=== PATIENT | male | born 1970 | race Caucasian/White ===

== ENCOUNTER 2020-12-20 15:18 | Inpatient (IN) | payer SELFPAY ==
[2020-12-20 15:19] VITALS: BP 126/78; PULSE 68; RESP 14; TEMP 35.2; O2SAT 97; BMI 29.8
--- NOTE | 2020-12-20 16:47 | CM.ED ---
Addendum entered by Jannet Gomez 12/20/20 21:03: DORI called Patrick and spoke to Erick. Updated her about patient and his admission to [facility]. Provided her with room number. Jannet DAVILA Original Note: DORI note: Referral Source: Dulce, patient's child's mother Reason for Referral: Detox SW received call from [facility] inquiring about the [facility] ([facility]) treatment program. SW explained [facility] program to patient. Patient's child's mother, Dulce, said that patient needs detox. She indicated that patient's drug of choice is heroin. SW explained the program and stated she will be coming to bring patient into the Emergency Room. Of note, Dulce said patient has no ID or photo ID. SW met with patient. Patient was asked about desire to get detox via [facility] program. SW explained program involves patient signing a contract, no visitors and no cell phone while in detox, which is on average 3-5 days. Patient verbalized understanding. Patient voiced desire to participate in program. No questions or concerns voiced. Plan: [facility] Jannet DAVILA
--- NOTE | 2020-12-20 16:47 | EX.ED.SAOD ---
HPI History of Present Illness Chief Complaint: Substance Abuse Detail of Chief Complaint: IV opiates, daily use 1 g heroin Informant: patient Onset/Context/Timing Onset: Month(s) (Patient states he has been using for approximately 15 years.) Context: Gradual Onset Timing: Continuous Quality: 1 g of heroin Location: IV drug use Current Severity: Moderate Maximum Severity: Moderate Worsened by: Nothing Relieved by: Nothing Associated Symptoms Associated Symptoms: Positive for rash*; Negative for vomiting*, diarrhea*, fever*, seizure, tremor, palpatations, change in mental status, trauma and sex for drugs* Narrative Narrative: Patient is an IV drug user. He has been using for 15 years. Last rehab was 5 years ago. He states he last used at 0900. He denies headache, visual disturbance, ocular or auditory symptoms. He denies trouble speech or swallowing. Nuys chest pain or shortness of breath. He denies nausea, vomiting diarrhea. He denies dysuria, frequency, urgency or hematuria. He states he used recently in his arms. He denies atraumatic fever, heart murmur, SBE or being immune suppressed. Prior similar symptoms: Yes Recent Illness/Hospitalization: No PFSH PFSH no medical history Home Medications Zyprexa 05/12/16 [History Last Taken Unknown] Allergy/AdvReac Type Severity Reaction Status Date / Time No Known Allergies Allergy Verified 05/12/16 17:59 no significant family history no surgical history Social History (Updated 12/20/20 @ 16:[address] Jony Castellano MD) Smoking Status: Current every day smoker details: Rarely uses substance use type: opiates and IV drugs ROS ROS ED Constitutional Constitutional ED: Denies chills, fever(s), subjective or sweats Eyes Eyes: Denies blurry vision, change in vision or diplopia ENT ENT ED: Denies ear pain, rhinorrhea or sore throat Cardiovascular Cardiovascular: Denies chest pain or palpitations Respiratory/Chest Respiratory/Chest: Denies cough, dyspnea or dyspnea on exertion Gastrointestinal Gastrointestinal: Denies abdominal pain, diarrhea, nausea or vomiting Genitourinary Genitourinary ED: Denies dysuria or urinary frequency Musculoskeletal Musculoskeletal: Denies arthralgias, myalgias or neck pain Integumentary Reports rash; Denies abscess Neurologic Neurologic: Reports weakness; Denies headache(s) or paresthesias Psychiatric Psychiatric: Reports depression; Denies suicidal ideation or suicidal thoughts Hematologic/Lymphatic Hematologic/Lymphatic: Denies easy bleeding or easy bruising EXAM Physical Exam Const Vital Signs: 12/20/20 15:19 12/20/20 19:17 Temperature 95.3 F L Temperature Source Temporal Pulse Rate 68 Respiratory Rate 14 16 Blood Pressure 126/78 H Blood Pressure Mean 94 Pulse Ox 97 Oxygen Delivery Method Room Air Positive well nourished, well developed and unkempt General Appearance ED: unkempt and well developed; Negative for pallor HEENT Reports TM's clear and dry mucous membranes atraumatic Tympanic Membrane ED: Yes TM's clear Mouth ED: Yes dry mucous membranes Mouth: dry mucous membranes Eyes PERRL and EOMs intact bilaterally General Eye ED: Negative for pale conjunctiva or scleral icterus Neck no lymphadenopathy, supple and no JVD Thyroid: tender Lymph Lymphatic: no lymphadenopathy noted and lymphadenopathy Chest Wall palpation of chest normal Resp normal respiratory effort and clear to auscultation bilaterally Cardio regular rate, regular rhythm, S1 normal heart sound, S2 normal heart sound and no murmurs GI soft to palpation, non-tender, non-distended and no masses Back/Spine no CVA tenderness Cervical Spine: Negative for cervical spine tenderness Thoracic Spine / Upper Back: Negative for thoracic spinal tenderness Lumbar Spine / Lower Back: Negative for lumbar spinal tenderness Extremity Extremity Narrative: There is tenderness noted over areas of erythema medial anterior distal right and left leg/ankle General Extremety ED: Yes tenderness and other findings; Negative for edema General Extremity: other findings; Negative for edema Neuro oriented x3, CN's II-XII intact bilaterally and no sensory deficits noted Motor Exam: strength 5/5 throughout Psych thought process normal Appearance: unkempt Mood & Affect: depressed Skin Skin Narrative: Rash as previously described. No evidence of abscess. General Skin Exam: Negative for jaundice or pallor Lesions: no lesions MDM MDM MDM Narrative Medical decision making narrative: Patient with depressed affect. He has multiple injection sites noted. There are concern for infection. Blood work was obtained. Lactate was obtained. If he has evidence of endorgan injury or severe sepsis will obtain blood cultures prior to administration of IV antibiotics. Otherwise will treat with p.o. antibiotics and call hospitalist for admission. Lab Data Attestation: I reviewed the patient's lab results. Lab results narrative: CBC is normal. CO2 and anion gap are normal. Talk screen is positive for amphetamines. Alcohol level is minimal. Will page hospitalist for admission for opiate addiction and cellulitis injection sites Labs: Laboratory Results - last 24 hr 12/20/20 12/20/20 12/20/20 18:40 19:00 19:00 WBC 7.4 RBC 4.59 L Hgb 13.3 Hct 41.8 MCV 91.1 MCH 29.0 MCHC 31.8 L RDW Std Deviation 49.3 H RDW Coeff of Nayana 14.8 H Plt Count 223 MPV 9.4 Immature Gran % (Auto) 0.100 Neut % (Auto) 44.2 L Lymph % (Auto) 36.4 [place] % (Auto) 13.2 H Eos % (Auto) 5.3 H Baso % (Auto) 0.8 Absolute Neuts (auto) 3.3 Absolute Lymphs (auto) 2.68 Nucleated RBC % 0 Sodium 138 Potassium 3.7 Chloride 106 Carbon Dioxide 31.0 Anion Gap 1 L BUN 11 Creatinine 0.97 Estim Creat Clear Calc 91.11 Est GFR (MDRD) Af Amer 105 Est GFR (MDRD) Non-Af 87 BUN/Creatinine Ratio 11.4 Glucose 75 Calcium 8.5 Total Bilirubin 0.20 AST 66 H ALT 86 H Alkaline Phosphatase 127 H Total Protein 7.7 Albumin 3.1 L Globulin 4.6 H Albumin/Globulin Ratio 0.7 L Urine Opiates Screen NEGATIVE Urine Methadone Screen NEGATIVE Ur Barbiturates Screen NEGATIVE Ur Phencyclidine Scrn NEGATIVE Ur Amphetamines Screen POSITIVE H U Methamphetamin-MDMA NEGATIVE U Benzodiazepines Scrn NEGATIVE Urine Cocaine Screen NEGATIVE U Cannabinoids Screen NEGATIVE Ur Drug Screen Comment Ethyl Alcohol 12/20/20 19:00 WBC RBC Hgb Hct MCV MCH MCHC RDW Std Deviation RDW Coeff of Nayana Plt Count MPV Immature Gran % (Auto) Neut % (Auto) Lymph % (Auto) [place] % (Auto) Eos % (Auto) Baso % (Auto) Absolute Neuts (auto) Absolute Lymphs (auto) Nucleated RBC % Sodium Potassium Chloride Carbon Dioxide Anion Gap BUN Creatinine Estim Creat Clear Calc Est GFR (MDRD) Af Amer Est GFR (MDRD) Non-Af BUN/Creatinine Ratio Glucose Calcium Total Bilirubin AST ALT Alkaline Phosphatase Total Protein Albumin Globulin Albumin/Globulin Ratio Urine Opiates Screen Urine Methadone Screen Ur Barbiturates Screen Ur Phencyclidine Scrn Ur Amphetamines Screen U Methamphetamin-MDMA U Benzodiazepines Scrn Urine Cocaine Screen U Cannabinoids Screen Ur Drug Screen Comment Ethyl Alcohol 6.0 Discharge Plan Triage Chief Complaint: Substance Abuse ED Provider: Jony Castellano Dx/Rx/DC Orders Clinical Impression: Opiate dependence, continuous, Cellulitis of left ankle, Cellulitis of right ankle Prescriptions: No Action Zyprexa RF: 0 Primary Care Provider: Care Physician,No Primary Referrals: Care Physician,No Primary [Primary Care Provider] - Disposition Disposition: Acute Care Hospital [facility]
[2020-12-20 19:01] LABS: Amphetamine Urine VISTA POSITIVE (<1000 ng/mL); Barbiturate Urine VISTA NEGATIVE (< 200 ng/mL); Benzodiazepine Urine VISTA NEGATIVE (< 200 ng/mL); Cocaine Urine VISTA NEGATIVE (< 300 ng/mL); Ecstacy Urine VISTA NEGATIVE (< 500 ng/mL); Methadone Urine VISTA NEGATIVE (< 300 ng/mL); PCP Urine VISTA NEGATIVE (< 25 ng/mL); THC Urine VISTA NEGATIVE (< 50 ng/mL); Vista UDS pH Range 6
[2020-12-20 19:09] LABS: Absolute Lymphocyte Count 2.68 X10^3/uL (0.83-4.51); Absolute Neutrophil Count 3.3 X10^3/uL (2.0-7.7); Basophil# 0.06 X10^3/uL; Basophil% 0.8 % (0-1); Eosinophil# 0.39 X10^3/uL; Eosinophils% 5.3 % (0-5); Hematocrit 41.8 % (40-54); Hemoglobin 13.3 g/dL (13.0-16.5); Lymphocyte # 2.68 X10^3/ul (0.83-4.51); Lymphocyte % 36.4 % (19-41); Mean Corp Hgb Conc 31.8 g/dL (32-36); Mean Corpuscular Volume 91.1 fL (80-94); Mean Platelet Vol. 9.4 fl (6.2-12.0); Monocyte# 0.97 X10^3/uL; Monocyte% 13.2 % (0-10); NRBC Flagged by Analyzer 0 % (0-5); Neutrophil # 3.25 X10^3/uL (2.7-7.7); Neutrophil % 44.2 % (47-70); Platelet Count 223 K/mm3 (150-450); RBC Distribution Width CV 14.8 % (11.6-14.6); RBC Distribution Width SD 49.3 fl (35.1-43.9); Red Blood Count 4.59 M/mm3 (4.6-6.2); White Blood Count 7.4 K/mm3 (4.4-11.0)
[2020-12-20 19:17] VITALS: RESP 16
[2020-12-20 19:26] LABS: ALB/GLOB Ratio 0.7 RATIO (0.9-2.4); AST(SGOT) 66 U/L (15-37); Alanine Aminotransfer ALT/SGPT 86 U/L (16-61); Albumin, Serum 3.1 g/dL (3.2-5.0); Alkaline Phosphatase 127 U/L (45-117); Anion Gap 1 (5-15); BUN 11 mg/dL (7-18); BUN/Creat Ratio 11.4 RATIO (10-20); Calcium,Total 8.5 mg/dL (8.5-10.1); Chloride 106 mmol/L (98-107); Creatinine, Serum 0.97 mg/dL (0.70-1.30); EST Glomerular Filtration Rate 87 mL/min (>60); Est Glom Filt Rate - Afr Amer 105 mL/min (>60); Estimated Creatinine Clearance 91.11 ml/min; Globulin 4.6 g/dL (2.2-4.2); Glucose 75 mg/dL (74-106); Potassium 3.7 mmol/L (3.5-5.1); Protein, Total 7.7 g/dL (6.4-8.2); Sodium Level 138 mmol/L (136-145)
[2020-12-20 20:32] VITALS: BP 124/74; PULSE 69; RESP 16; TEMP 36.6; O2SAT 97
[2020-12-20 20:32] LABS: Lactic Acid 1.1 mmol/L (0.4-1.9)
[2020-12-20] MEDS: Doxycycline 100 MG CAPSULE PO (20:36)
[2020-12-20 20:55] VITALS: BMI 29.0
--- NOTE | 2020-12-20 21:04 | PCM.HP.STD ---
HPI - General General Date of Admission: 12/20/20 Chief Complaint: Desire for detoxification HPI Narrative ALMA KINGSLEY, is a 50 M with a significant history of tobacco abuse; IV drug use who presents to the emergency department with desire for detoxification. Patient shoots heroin. He shoots about 1 g of heroin a day. He has been using for about 15 years. Last time he used heroin was on the morning of the day of presentation. He denies any withdrawal symptoms at this time. Last time he detox was 5 years ago. Also he smokes methamphetamine. He smokes about 1 g of been amphetamines every other day. Last time he used methamphetamine was about 3 days ago. Also patient has erythema on bilateral lower legs that he sustained by shooting heroin in his legs. He reports pain in bilateral lower legs with right lower extremity is worse than left lower extremities. He reports swelling in bilateral lower legs. [facility] Medical History Smoker Substance abuse Home Medications Zyprexa 05/12/16 [History Last Taken Unknown] Allergy/AdvReac Type Severity Reaction Status Date / Time No Known Allergies Allergy Verified 05/12/16 17:59 no significant family history no surgical history Social History Smoking Status: Current every day smoker details: Rarely uses substance use type: opiates and IV drugs ROS ROS Narrative 12 point review of system is negative except as stated in HPI. Vital Signs Vital Signs Vital Signs: 12/20/20 15:19 12/20/20 19:17 12/20/20 20:32 Temperature 95.3 F L 97.8 F Temperature Source Temporal Temporal Pulse Rate 68 69 Respiratory Rate 14 16 16 Blood Pressure 126/78 H 124/74 H Blood Pressure Mean 94 90 Pulse Ox 97 97 Oxygen Delivery Method Room Air Room Air Physical Exam Narrative Alert and oriented x3 Nontraumatic; normocephalic Lung clear to auscultate Heart sounds S1-S2. No murmur, gallop or rubs. Abdomen bowel sounds present soft, nontender nondistended Extremity: Bilateral lower legs with erythema; right worse than left. Bilateral lower legs with tenderness; right worse than left. Swelling of right lower legs. Lab / Micro Data Result Diagrams: 12/20/20 19:00 12/20/20 19:00 Labs: Laboratory Results - last 24 hr 12/20/20 12/20/20 12/20/20 18:40 19:00 19:00 WBC 7.4 RBC 4.59 L Hgb 13.3 Hct 41.8 MCV 91.1 MCH 29.0 MCHC 31.8 L RDW Std Deviation 49.3 H RDW Coeff of Nayana 14.8 H Plt Count 223 MPV 9.4 Immature Gran % (Auto) 0.100 Neut % (Auto) 44.2 L Lymph % (Auto) 36.4 [place] % (Auto) 13.2 H Eos % (Auto) 5.3 H Baso % (Auto) 0.8 Absolute Neuts (auto) 3.3 Absolute Lymphs (auto) 2.68 Nucleated RBC % 0 Sodium 138 Potassium 3.7 Chloride 106 Carbon Dioxide 31.0 Anion Gap 1 L BUN 11 Creatinine 0.97 Estim Creat Clear Calc 91.11 Est GFR (MDRD) Af Amer 105 Est GFR (MDRD) Non-Af 87 BUN/Creatinine Ratio 11.4 Glucose 75 Lactic Acid Calcium 8.5 Total Bilirubin 0.20 AST 66 H ALT 86 H Alkaline Phosphatase 127 H Total Protein 7.7 Albumin 3.1 L Globulin 4.6 H Albumin/Globulin Ratio 0.7 L Urine Opiates Screen NEGATIVE Urine Methadone Screen NEGATIVE Ur Barbiturates Screen NEGATIVE Ur Phencyclidine Scrn NEGATIVE Ur Amphetamines Screen POSITIVE H U Methamphetamin-MDMA NEGATIVE U Benzodiazepines Scrn NEGATIVE Urine Cocaine Screen NEGATIVE U Cannabinoids Screen NEGATIVE Ur Drug Screen Comment Ethyl Alcohol 12/20/20 12/20/20 19:00 19:00 WBC RBC Hgb Hct MCV MCH MCHC RDW Std Deviation RDW Coeff of Nayana Plt Count MPV Immature Gran % (Auto) Neut % (Auto) Lymph % (Auto) [place] % (Auto) Eos % (Auto) Baso % (Auto) Absolute Neuts (auto) Absolute Lymphs (auto) Nucleated RBC % Sodium Potassium Chloride Carbon Dioxide Anion Gap BUN Creatinine Estim Creat Clear Calc Est GFR (MDRD) Af Amer Est GFR (MDRD) Non-Af BUN/Creatinine Ratio Glucose Lactic Acid 1.1 Calcium Total Bilirubin AST ALT Alkaline Phosphatase Total Protein Albumin Globulin Albumin/Globulin Ratio Urine Opiates Screen Urine Methadone Screen Ur Barbiturates Screen Ur Phencyclidine Scrn Ur Amphetamines Screen U Methamphetamin-MDMA U Benzodiazepines Scrn Urine Cocaine Screen U Cannabinoids Screen Ur Drug Screen Comment Ethyl Alcohol 6.0 Assessment & Plan Assessment/Plan (1) IV drug user: (2) Opiate dependence, continuous: (3) Cellulitis of left ankle: (4) Cellulitis of right ankle: (5) Methamphetamine use: (6) Tobacco abuse: PLAN: The patient is a 50 year old M with a significant history of IV drug use; methamphetamine abuse; and tobacco abuse who presents at the emergency department with help for detoxification and with bilateral lower extremity cellulitis; right worse than left. IV drug user/opiate dependence/desire for detoxification Urine toxicology was positive for amphetamines Patient be started on Subutex and other adjunctive medications: Gabapentin as needed; dicyclomine as needed; Vistaril as needed; methocarbamol as needed; clonidine as needed; Imodium as needed; trazodone as needed and Zofran as needed. Monitor COWS and CINA score Bilateral lower extremity cellulitis Emergency department labs reviewed showed normal white count. Started on doxycycline at the emergency department. Will order clindamycin IV and Ancef. Trend CBC and BMP. Tobacco abuse Counseled Nicotine patch prescribed. Metabutethamine abuse Counselled DVT prophylaxis Moderate risk. Lovenox ordered
[2020-12-20 21:07] VITALS: BP 120/76; PULSE 56; RESP 16; TEMP 36.6; O2SAT 100
[2020-12-21] MEDS: Cephalexin 500 MG Capsule PO ×2 (00:03→05:10)
--- NOTE | 2020-12-21 00:16 | RAD_ITS ---
STUDY: X-RAY - ABDOMEN/PELVIS REASON FOR EXAM: Male, 50 years old. Abdominal pain, pt thrashing around, detox. TECHNIQUE: Two AP supine views of the abdomen and pelvis. COMPARISON: None. FINDINGS: Normal visualized lung bases. There is an unremarkable bowel gas pattern. There is no demonstrated free abdominal air. The visualized liver, spleen and kidneys are grossly normal in size and morphology. Normal soft tissue structures. Normal visualized osseous structures. RAD/Abdomen Single View (Portable) IMPRESSION: Normal x-ray examination of the abdomen and pelvis. Electronically Signed: Gael Ghotra DO at 1:29 EDT Tel , Service support ,
[2020-12-21] MEDS: Clindamycin HCl 150 MG Capsule 450 MG PO (05:10)
[2020-12-21 05:11] VITALS: BP 120/55; PULSE 53; RESP 18; TEMP 36.7; O2SAT 95
[2020-12-21 09:30] VITALS: O2SAT 95
[2020-12-21 09:31] VITALS: BP 95/54; PULSE 56; RESP 16; TEMP 36.9; O2SAT 97
[2020-12-21 09:35] VITALS: PULSE 60
--- NOTE | 2020-12-21 10:15 | CASEMGMT ---
Social Work Note Pt is listed as self-pay. SW updated Halina with [employer]. Maryjane Lua ELECTRICAL DESIGN ENGINEER, MORTGAGE OPERATIONS MANAGER
--- NOTE | 2020-12-21 10:55 | ADDICTION ---
This science writer attempted to meet with PT to conduct assessments, plan for d/c and complete paperwork for [facility] funds to pay for detox services. PT refused to meet with this science writer. This science writer informed his nurse and [facility] SW, nurse noted that he has not been interacting actively with her as well.
--- NOTE | 2020-12-21 12:10 | CASEMGMT ---
Social Work Note SW also updated that pt is Homeless. SW in to speak with pt. SW introduced self and role at [facility]. Pt initially sleeping when this worker entered the room, woke up, but didn't open eyes during conversation with this worker. Pt confirms he has no insurance and is homeless. Pt states he has never applied for Medicaid. SW provided pt with financial and housing resources. Pt denied additional needs or concerns at this time. Maryjane Sandy SUSTAINABLE COMMUNITIES DESIGNER, DIGITAL STRATEGIST
[2020-12-21] MEDS: Doxycycline 100 MG CAPSULE PO ×2 (13:00→20:57)
[2020-12-21 15:27] VITALS: BP 124/90; PULSE 91; RESP 16; TEMP 37.1; O2SAT 100
--- NOTE | 2020-12-21 17:18 | PN.HOSP_ITS ---
Subjective Subjective Patient was seen and examined today, he said very little to this examiner, he says he has not made up his mind whether to go inpatient detox services or outpatient detox services. I change his antibiotic coverage to Vibramycin today and stopped his Keflex and clindamycin. Objective Data Objective Data Vital Signs: Vital Signs Temp Pulse Resp BP Pulse Ox 98.7 F 91 16 124/90 H 100 12/21/20 15:27 12/21/20 15:27 12/21/20 15:27 12/21/20 15:27 12/21/20 15:27 Oxygen Delivery Method Room Air Weight: 89.086 kg Body Mass Index (BMI) 29.0 Lab / Micro Data Result Diagrams: 12/20/20 19:00 12/20/20 19:00 Labs: Laboratory Results - last 24 hr 12/20/20 12/20/20 12/20/20 18:40 19:00 19:00 WBC 7.4 RBC 4.59 L Hgb 13.3 Hct 41.8 MCV 91.1 MCH 29.0 MCHC 31.8 L RDW Std Deviation 49.3 H RDW Coeff of Nayana 14.8 H Plt Count 223 MPV 9.4 Immature Gran % (Auto) 0.100 Neut % (Auto) 44.2 L Lymph % (Auto) 36.4 [place] % (Auto) 13.2 H Eos % (Auto) 5.3 H Baso % (Auto) 0.8 Absolute Neuts (auto) 3.3 Absolute Lymphs (auto) 2.68 Nucleated RBC % 0 Sodium 138 Potassium 3.7 Chloride 106 Carbon Dioxide 31.0 Anion Gap 1 L BUN 11 Creatinine 0.97 Estim Creat Clear Calc 91.11 Est GFR (MDRD) Af Amer 105 Est GFR (MDRD) Non-Af 87 BUN/Creatinine Ratio 11.4 Glucose 75 Lactic Acid Calcium 8.5 Total Bilirubin 0.20 AST 66 H ALT 86 H Alkaline Phosphatase 127 H Total Protein 7.7 Albumin 3.1 L Globulin 4.6 H Albumin/Globulin Ratio 0.7 L Urine Opiates Screen NEGATIVE Urine Methadone Screen NEGATIVE Ur Barbiturates Screen NEGATIVE Ur Phencyclidine Scrn NEGATIVE Ur Amphetamines Screen POSITIVE H U Methamphetamin-MDMA NEGATIVE U Benzodiazepines Scrn NEGATIVE Urine Cocaine Screen NEGATIVE U Cannabinoids Screen NEGATIVE Ur Drug Screen Comment Ethyl Alcohol 12/20/20 12/20/20 19:00 19:00 WBC RBC Hgb Hct MCV MCH MCHC RDW Std Deviation RDW Coeff of Nayana Plt Count MPV Immature Gran % (Auto) Neut % (Auto) Lymph % (Auto) [place] % (Auto) Eos % (Auto) Baso % (Auto) Absolute Neuts (auto) Absolute Lymphs (auto) Nucleated RBC % Sodium Potassium Chloride Carbon Dioxide Anion Gap BUN Creatinine Estim Creat Clear Calc Est GFR (MDRD) Af Amer Est GFR (MDRD) Non-Af BUN/Creatinine Ratio Glucose Lactic Acid 1.1 Calcium Total Bilirubin AST ALT Alkaline Phosphatase Total Protein Albumin Globulin Albumin/Globulin Ratio Urine Opiates Screen Urine Methadone Screen Ur Barbiturates Screen Ur Phencyclidine Scrn Ur Amphetamines Screen U Methamphetamin-MDMA U Benzodiazepines Scrn Urine Cocaine Screen U Cannabinoids Screen Ur Drug Screen Comment Ethyl Alcohol 6.0 Physical Exam Const alert, oriented x3 and no apparent distress HEENT head/scalp atraumatic and moist oral mucous membranes Head and Scalp: normocephalic Eyes PERRL, EOMs intact bilaterally and conjunctivae normal Neck no lymphadenopathy, supple and no JVD Resp normal respiratory effort, no retractions, no use of accessory muscles and clear to auscultation bilaterally Cardio regular rate, regular rhythm, S1 normal heart sound, S2 normal heart sound, no gallops and no clicks GI normal to inspection, nondistended, normoactive bowel sounds, soft to palpation, non-tender and non-distended Extremity normal to inspection and no clubbing, cyanosis or edema Extremity Narrative: There are no redness areas over the patient's lower legs currently Skin no rashes or lesions noted, no wounds and skin turgor normal Neuro oriented x3, CN's II-XII intact bilaterally and no sensory deficits noted Sensorium / Orientation: awake and alert Motor Exam: strength 5/5 throughout Psych Psych Narrative: Patient has a flat affect, he appears reluctant to carry on conversation Assessment & Plan Assessment/Plan (1) Opiate dependence, continuous: PLAN: 1. Acute opiate withdrawal-patient is minimally symptomatic at this time and was not given Subutex #2 methamphetamine abuse #3 lower extremity cellulitis-this appears minimal at this time, I have elected to place the patient on doxycycline for a few days, it is unlikely that he will he will need to be discharged on this medication #4 chronic opiate dependence Visit Charges Inpatient E&M: 87173 Subs Hosp L2
[2020-12-21] MEDS: Acetaminophen 325 MG Tablet 650 MG PO (19:49)
[2020-12-21 20:00] VITALS: BP 137/92; PULSE 59; RESP 16; TEMP 36.8; O2SAT 97
[2020-12-21] MEDS: Buprenorphine HCl 2 MG TAB.SUBL SL (20:15)
[2020-12-21] MEDS: Mag Hydrox/Al Hydrox/Simeth 30 ML UDC 10 ML PO (20:57)
[2020-12-21] MEDS: Pramipexole Di-HCl 0.125 MG Tablet PO (21:48)
[2020-12-21] MEDS: cloNIDine HCl 0.1 MG Tablet PO (21:48)
[2020-12-21] MEDS: Nicotine Polacrilex 2 MG GUM PO (22:36)
[2020-12-21] MEDS: Dicyclomine 10 MG Capsule PO (22:36)
--- NOTE | 2020-12-21 22:55 | NURSING ---
xray notified pt to restless/anxious for portable xray will let them know when pt can participate in test
[2020-12-21] MEDS: Haloperidol Lactate 5 MG/ML Vial 2 MG IM (23:08)
--- NOTE | 2020-12-21 23:52 | NURSING ---
xray notified that pt calmer and able to particiapate in test now
--- NOTE | 2020-12-22 00:13 | NURSING ---
pt yelling out, flopping in bed, states his meds arent working for withdrawal, had been out in [place] in his underwear per primary rn, directed back to his room. dr notified awaiting response. pt being moved to room 309 to be closer to nursing station for safety.
[2020-12-22] MEDS: Gabapentin 300 MG Capsule PO ×2 (00:27→11:01)
--- NOTE | 2020-12-22 00:27 | NURSING ---
nursing preparation department supervisor notified of pt behavior and that pt moved closer to nursing station for safety
[2020-12-22] MEDS: hydrOXYzine PAM 25 MG Capsule 50 MG PO ×2 (00:28→06:28)
[2020-12-22] MEDS: traZODone 100 MG Tablet PO (00:28)
[2020-12-22] MEDS: Methocarbamol 750 MG Tablet 1500 MG PO ×2 (00:28→06:28)
[2020-12-22] MEDS: Haloperidol Lactate 5 MG/ML Vial 4 MG IM (00:45)
[2020-12-22 02:00] VITALS: BP 128/83; PULSE 100; RESP 18; TEMP 36.6; O2SAT 94
[2020-12-22] MEDS: Acetaminophen 325 MG Tablet 650 MG PO (02:03)
[2020-12-22] MEDS: Buprenorphine HCl 2 MG TAB.SUBL SL ×3 (03:56→19:38)
[2020-12-22] MEDS: Dicyclomine 10 MG Capsule 20 MG PO (06:27)
[2020-12-22] MEDS: Ondansetron 8 MG Tablet PO (11:01)
[2020-12-22] MEDS: Doxycycline 100 MG CAPSULE PO ×2 (11:02→22:36)
[2020-12-22] MEDS: cloNIDine HCl 0.1 MG Tablet PO (11:17)
[2020-12-22 11:18] VITALS: BP 136/80; PULSE 58; RESP 16; TEMP 36.7; O2SAT 98
[2020-12-22 13:30] VITALS: O2SAT 98
--- NOTE | 2020-12-22 13:59 | PCM.PN.HOSP ---
Subjective Subjective Patient was seen and examined today, he had some agitation last night, today the patient appears calm. Objective Data Objective Data Vital Signs: Vital Signs Temp Pulse Resp BP Pulse Ox 97.8 F 100 18 128/83 H 98 12/22/20 02:00 12/22/20 02:00 12/22/20 02:00 12/22/20 02:00 12/22/20 13:30 Oxygen Delivery Method Room Air Weight: 89.086 kg Body Mass Index (BMI) 29.0 Lab / Micro Data Result Diagrams: 12/20/20 19:00 12/20/20 19:00 Radiography Diagnostic Testing: Radiology Impression KUB X-Ray 12/21/20 00:16 IMPRESSION: Normal x-ray examination of the abdomen and pelvis. Electronically Signed: Gael Ghotra DO at 1:29 EDT Tel , Service support , Physical Exam Narrative Alert and oriented x3 Nontraumatic; normocephalic Lung clear to auscultate Heart sounds S1-S2. No murmur, gallop or rubs. Abdomen bowel sounds present soft, nontender nondistended Extremity: Bilateral lower legs with erythema; right worse than left. Bilateral lower legs with tenderness; right worse than left. Swelling of right lower legs. Const alert, oriented x3, no apparent distress and healthy appearing General Appearance: cooperative, well kempt and well developed Orientation / Consciousness: awake, oriented to person, oriented to place and oriented to time HEENT normocephalic and moist oral mucous membranes Eyes PERRL, EOMs intact bilaterally and conjunctivae normal Neck nuchal rigidity, supple, no JVD, thyroid normal and no carotid bruits General: trachea midline Resp normal respiratory effort and clear to auscultation bilaterally Auscultation: Negative for rales, rhonchi or wheezes Cardio regular rate, regular rhythm, no murmurs, no rub and no gallops GI normal to inspection, nondistended, normoactive bowel sounds, soft to palpation, non-tender and non-distended Extremity no clubbing, cyanosis or edema Extremity Narrative: There are no redness areas over the patient's lower legs currently Skin no rashes or lesions noted General Skin Exam: no breakdown Neuro oriented x3, CN's II-XII intact bilaterally, no focal motor deficits and no sensory deficits noted Sensorium / Orientation: awake and alert Speech: speech normal Motor Exam: strength 5/5 throughout Psych thought process normal and affect normal Psych Narrative: Patient has a flat affect, he appears reluctant to carry on conversation Assessment & Plan Assessment/Plan (1) Opiate dependence, continuous: PLAN: 1. Acute opiate withdrawal-patient is minimally symptomatic at this time, patient had some agitation last night but he is calm today at the time of my examination. #2 methamphetamine abuse #3 lower extremity cellulitis-this appears minimal at this time, he remains on doxycycline #4 chronic opiate dependence Visit Charges Inpatient E&M: 32745 Subs Hosp L2
[2020-12-22 15:08] VITALS: BP 132/84; PULSE 54; RESP 18; TEMP 36.9; O2SAT 98
[2020-12-22 18:28] VITALS: BP 114/67; PULSE 56; RESP 18; TEMP 37.1; O2SAT 98
[2020-12-22 22:30] VITALS: BP 121/78; PULSE 69; RESP 16; TEMP 37; O2SAT 98
[2020-12-23] MEDS: Buprenorphine HCl 2 MG TAB.SUBL SL ×3 (04:26→19:42)
[2020-12-23 04:30] VITALS: BP 110/70; PULSE 49; RESP 16; TEMP 36.9; O2SAT 98
[2020-12-23 07:37] VITALS: O2SAT 98
[2020-12-23 08:06] VITALS: BP 118/78; PULSE 74; RESP 16; TEMP 36.8; O2SAT 94
[2020-12-23] MEDS: Doxycycline 100 MG CAPSULE PO ×2 (12:01→21:51)
--- NOTE | 2020-12-23 15:23 | PCM.PN.HOSP ---
Subjective Subjective Patient was seen and examined today, he has no complaints of any tremor, nervousness, or muscle pain. Objective Data Objective Data Vital Signs: Vital Signs Temp Pulse Resp BP Pulse Ox 98.3 F 74 16 118/78 94 12/23/20 08:06 12/23/20 08:06 12/23/20 08:06 12/23/20 08:06 12/23/20 08:06 Oxygen Delivery Method Room Air Weight: 89.086 kg Body Mass Index (BMI) 29.0 Lab / Micro Data Result Diagrams: 12/20/20 19:00 12/20/20 19:00 [id number] [place] [address] Progress Note - Gcycifkbvzd54/14/21 1718MR#: [id number]:ALMA KINGSLEY #:[id number]: 08/10/197050From: Chun Stevenson DOPCP:Care Physician, No Primary Status:ADM INLocation: [id number] Subjective Subjective Patient was seen and examined today, he said very little to this examiner, he says he has not made up his mind whether to go inpatient detox services or outpatient detox services. I change his antibiotic coverage to Vibramycin today and stopped his Keflex and clindamycin. Objective Data Objective Data Vital Signs: Vital Signs Temp Pulse Resp BP Pulse Ox 98.7 F 91 16 124/90 H 100 12/21/20 15:27 12/21/20 15:27 12/21/20 15:27 12/21/20 15:27 12/21/20 15:27 Oxygen Delivery Method Room Air Weight: 89.086 kg Body Mass Index (BMI) 29.0 Lab / Micro Data Result Diagrams: 12/20/20 19:00 document embedded image 12/20/20 19:00 document embedded image Labs:Laboratory Results - last 24 hr 12/20/20 12/20/20 12/20/20 18:40 19:00 19:00 WBC 7.4 RBC 4.59 L Hgb 13.3 Hct 41.8 MCV 91.1 MCH 29.0 MCHC 31.8 L RDW Std Deviation 49.3 H RDW Coeff of Nayana 14.8 H Plt Count 223 MPV 9.4 Immature Gran % (Auto) 0.100 Neut % (Auto) 44.2 L Lymph % (Auto) 36.4 [place] % (Auto) 13.2 H Eos % (Auto) 5.3 H Baso % (Auto) 0.8 Absolute Neuts (auto) 3.3 Absolute Lymphs (auto) 2.68 Nucleated RBC % 0 Sodium 138 Potassium 3.7 Chloride 106 Carbon Dioxide 31.0 Anion Gap 1 L BUN 11 Creatinine 0.97 Estim Creat Clear Calc 91.11 Est GFR (MDRD) Af Amer 105 Est GFR (MDRD) Non-Af 87 BUN/Creatinine Ratio 11.4 Glucose 75 Lactic Acid Calcium 8.5 Total Bilirubin 0.20 AST 66 H ALT 86 H Alkaline Phosphatase 127 H Total Protein 7.7 Albumin 3.1 L Globulin 4.6 H Albumin/Globulin Ratio 0.7 L Urine Opiates Screen NEGATIVE Urine Methadone Screen NEGATIVE Ur Barbiturates Screen NEGATIVE Ur Phencyclidine Scrn NEGATIVE Ur Amphetamines Screen POSITIVE H U Methamphetamin-MDMA NEGATIVE U Benzodiazepines Scrn NEGATIVE Urine Cocaine Screen NEGATIVE U Cannabinoids Screen NEGATIVE Ur Drug Screen Comment Ethyl Alcohol 12/20/20 12/20/20 19:00 19:00 WBC RBC Hgb Hct MCV MCH MCHC RDW Std Deviation RDW Coeff of [place] Plt Count MPV Immature Gran % (Auto) Neut % (Auto) Lymph % (Auto) [place] % (Auto) Eos % (Auto) Baso % (Auto) Absolute Neuts (auto) Absolute Lymphs (auto) Nucleated RBC % Sodium Potassium Chloride Carbon Dioxide Anion Gap BUN Creatinine Estim Creat Clear Calc Est GFR (MDRD) Af Amer Est GFR (MDRD) Non-Af BUN/Creatinine Ratio Glucose Lactic Acid 1.1 Calcium Total Bilirubin AST ALT Alkaline Phosphatase Total Protein Albumin Globulin Albumin/Globulin Ratio Urine Opiates Screen Urine Methadone Screen Ur Barbiturates Screen Ur Phencyclidine Scrn Ur Amphetamines Screen U Methamphetamin-MDMA U Benzodiazepines Scrn Urine Cocaine Screen U Cannabinoids Screen Ur Drug Screen Comment Ethyl Alcohol 6.0 Physical Exam Const alert, oriented x3 and no apparent distress HEENT head/scalp atraumatic and moist oral mucous membranes Head and Scalp: normocephalic Eyes PERRL, EOMs intact bilaterally and conjunctivae normal Neck no lymphadenopathy, supple and no JVD Resp normal respiratory effort, no retractions, no use of accessory muscles and clear to auscultation bilaterally Cardio regular rate, regular rhythm, S1 normal heart sound, S2 normal heart sound, no gallops and no clicks GI normal to inspection, nondistended, normoactive bowel sounds, soft to palpation, non-tender and non-distended Extremity normal to inspection and no clubbing, cyanosis or edema Extremity Narrative: There are no redness areas over the patient's lower legs currently Skin no rashes or lesions noted, no wounds and skin turgor normal Neuro oriented x3, CN's II-XII intact bilaterally and no sensory deficits noted Sensorium / Orientation: awake and alert Motor Exam: strength 5/5 throughout Psych Psych Narrative: Patient has a flat affect, he appears reluctant to carry on conversation Const alert, oriented x3, no apparent distress and healthy appearing General Appearance: cooperative, well kempt and well developed Orientation / Consciousness: awake, oriented to person, oriented to place and oriented to time HEENT normocephalic, head/scalp atraumatic and moist oral mucous membranes Eyes PERRL, EOMs intact bilaterally and conjunctivae normal Neck nuchal rigidity, no lymphadenopathy, supple, no JVD, thyroid normal and no carotid bruits General: trachea midline Resp normal respiratory effort, no retractions, no use of accessory muscles and clear to auscultation bilaterally Auscultation: Negative for rales, rhonchi or wheezes Cardio regular rate, regular rhythm, S1 normal heart sound, S2 normal heart sound, no murmurs, no rub, no gallops and no clicks GI normal to inspection, nondistended, normoactive bowel sounds, soft to palpation, non-tender and non-distended Extremity normal to inspection and no clubbing, cyanosis or edema Extremity Narrative: There are no redness areas over the patient's lower legs currently Skin no rashes or lesions noted, no wounds and skin turgor normal General Skin Exam: no breakdown Neuro oriented x3, CN's II-XII intact bilaterally, no focal motor deficits and no sensory deficits noted Sensorium / Orientation: awake and alert Speech: speech normal Motor Exam: strength 5/5 throughout Psych thought process normal and affect normal Psych Narrative: Patient has a flat affect, he appears reluctant to carry on conversation Assessment & Plan Assessment/Plan (1) Opiate dependence, continuous: PLAN: 1. Acute opiate withdrawal-patient is minimally symptomatic at this time, addiction social worker delinquency prevention will talk with the patient tomorrow #2 methamphetamine abuse #3 lower extremity cellulitis-this appears minimal at this time, he remains on doxycycline #4 chronic opiate dependence Visit Charges Inpatient E&M: 19766 Subs Hosp L2
[2020-12-23 16:10] VITALS: BP 107/69; PULSE 54; RESP 16; TEMP 36.4; O2SAT 99
[2020-12-23 22:01] VITALS: BP 123/75; PULSE 63; RESP 16; TEMP 37.5; O2SAT 99
[2020-12-24 04:01] VITALS: BP 125/78; PULSE 56; RESP 16; TEMP 36.9; O2SAT 98
[2020-12-24] MEDS: Doxycycline 100 MG CAPSULE PO (07:42)
[2020-12-24] MEDS: Buprenorphine HCl 2 MG TAB.SUBL SL (07:43)
[2020-12-24 07:58] VITALS: BP 125/88; PULSE 47; RESP 16; TEMP 36.8; O2SAT 97
--- NOTE | 2020-12-24 09:00 | NURSING ---
pt called out wanting to leave. told pt he had to wait for dr to discharge him. pt proceeded to get dressed and walk out without discharge. pt left. dr albarado notified that pt left without discharge.
--- NOTE | 2020-12-24 19:15 | PCM.DC.SUM ---
Providers Date of Admission: 12/20/20 Date of Discharge: 12/24/20 Primary Care Physician: Rosie Primary Care Phys Reason For Visit: CELLULITIS / DETOX Diagnosis Discharge Diagnosis (1) Opiate dependence, continuous: Status: Acute Code(s): F11.20 - Opioid dependence, uncomplicated Plan: 1. Acute opiate withdrawal-patient is minimally symptomatic at this time, addiction web content & social media manager will talk with the patient tomorrow #2 methamphetamine abuse #3 lower extremity cellulitis-this appears minimal at this time, he remains on doxycycline #4 chronic opiate dependence #5 bipolar disorder Medications at Discharge Home Medications Zyprexa 05/12/16 Hospital Course Operations None Procedures None Summary of Care Provided Minutes Spent on Discharge: 31 Hospital Course: This 50-year-old white female was seen in the emergency room at [facility] requesting detox services for opiate addiction. Tox screen revealed amphetamines, he was admitted to [place] [id number] and orders were entered using the detox order set for opiates. Patient had a transient episode of agitation during his hospitalization but there were no major issues with the patient other than this. Patient did not cooperate with talking with addiction web content & social media manager however, he did not carry on lengthy conversations with this examiner and on the morning of 12/24/2020, abruptly left the hospital AGAINST MEDICAL ADVICE-he was not seen by myself on that date. I contacted his supervisor personnel clerks and discussed this with her. ABG / Lab / Microbiology Data Result Diagrams: 12/20/20 19:00 12/20/20 19:00 Meaningful Use Info Meaningful Use Diagnoses (Choose all that apply): None applicable Discharge Plan Admission Admit Date/Time: 12/20/20 20:45 Attending Provider: Chun Stevenson Primary Care Provider: Care Physician,Rosie Primary Discharge Orders/Prescriptions Prescriptions: No Action Zyprexa RF: 0 Referrals / Follow Up: Care Physician,No Primary [Primary Care Provider] - Disposition Disposition (needs filled in before D/C Order can be placed): Against Medical Advice
== END 2020-12-24 08:50 | disposition left against medical advice (07) | DRG 894 ==
LOC: ED 19:42 → MS3 12-21 05:40
PROVIDERS: Admitting Provider Hospitalist; Emergency Provider Emergency Medicine; Visit Provider Internal Medicine
DX: F11.23 Opioid dependence with withdrawal (principal); L03.116 Cellulitis of left lower limb; L03.115 Cellulitis of right lower limb; F17.200 Nicotine dependence, unspecified, uncomplicated; F31.9 Bipolar disorder, unspecified; F15.10 Other stimulant abuse, uncomplicated
CPT/HCPCS: 36415; 74018; 80053; 80307; 82077; 83605; 85025; 99283; A4216